=== PATIENT | female | born 1935 | race Caucasian/White ===

== ENCOUNTER 2017-10-01 09:16 | Inpatient (IN) | payer MEDICARE, OTHER ==
[2017-10-01] MEDS ORDERED: GELATIN SIZE 100 SPONGE (10:51)
[2017-10-01] MEDS ORDERED: THROMBIN 5000 UNIT VIAL (10:51)
[2017-10-01] MEDS ORDERED: GLYCOPYRROLATE 0.4 MG INJ ×2 (12:06→13:01)
[2017-10-01] MEDS ORDERED: SUCCINYLCHOLINE CHLORIDE 100 MG/5 ML SYG IV (12:06)
[2017-10-01] MEDS ORDERED: LIDOCAINE 2% (SDV) 5 ML INJ (12:06)
[2017-10-01] MEDS ORDERED: NEOSTIGMINE 3 MG/3 ML SYRINGE ×2 (12:06→13:01)
[2017-10-01] MEDS ORDERED: MEPERIDINE 100 MG INJ (12:06)
[2017-10-01] MEDS ORDERED: PROPOFOL 20 ML (12:06)
[2017-10-01] MEDS ORDERED: ROCURONIUM 50 MG INJ (12:06)
[2017-10-01] MEDS ORDERED: ONDANSETRON 4 MG INJ (13:00)
[2017-10-01] MEDS ORDERED: CEFAZOLIN 1 GM INJ (13:00)
[2017-10-01] MEDS ORDERED: METOCLOPRAMIDE 10 MG INJ (13:00)
[2017-10-01] MEDS: DEXTROSE 5%-LR 1,000 ML IV ×2 (13:00→22:21)
[2017-10-01] MEDS ORDERED: EPHEDrine SULFATE 50 MG/5 ML SYG (13:01)
[2017-10-01] MEDS: THROMBIN 5000 UNIT VIAL TOP (13:10)
[2017-10-01] MEDS: GELATIN COMPRESSED 100CM SPONGE TOP (13:10)
[2017-10-01] MEDS: POLYMYXIN/BACITRACIN 1L IRRIG (13:10)
[2017-10-01] MEDS: LIDOCAINE 1%/EPI 30 ML INJ (13:10)
[2017-10-01] MEDS: CEFAZOLIN 1 GM/50 ML (PMX) 50 ML IVPB ×2 (14:00→22:15)
[2017-10-01] MEDS ORDERED: HYDROmorphONE (0.2 MG/ML) 10ML SYG IV ×3 (15:00→15:10)
[2017-10-01] MEDS ORDERED: hydrALAzine 20 MG INJ IV (15:00)
[2017-10-01] MEDS ORDERED: FENTAnyl 50 MCG/ML VIAL IV ×3 (15:00)
[2017-10-01] MEDS ORDERED: LABETALOL HCL 20MG INJ IV (15:00)
[2017-10-01] MEDS ORDERED: OXYCODONE/ACETAMINOPHEN (5/325) TAB PO ×2 (15:00)
[2017-10-01] MEDS ORDERED: MEPERIDINE 25 MG INJ IV (15:00)
[2017-10-01] MEDS ORDERED: MIDAZOLAM 1 MG/ML 2 ML INJ IV (15:00)
[2017-10-01] MEDS ORDERED: METOCLOPRAMIDE 10 MG INJ IV (15:00)
[2017-10-01] MEDS ORDERED: DIPHENHYDRAMINE 50 MG INJ IV (15:00)
[2017-10-01] MEDS ORDERED: EPHEDrine SULFATE 50 MG/5 ML SYG IV (15:00)
[2017-10-01] MEDS ORDERED: HYDROmorphONE 2 MG/ML SYG (15:10)
[2017-10-01] MEDS: HYDROmorphONE (0.2 MG/ML) 10ML SYG IV (15:25)
[2017-10-01] MEDS: ONDANSETRON 4 MG INJ IV (15:26)
[2017-10-01] MEDS: morphine 2 MG INJ IV ×2 (16:29→20:47)
[2017-10-01] MEDS ORDERED: GLUCOSE GEL 15 GRAM TUBE PO ×2 (17:00)
[2017-10-01] MEDS ORDERED: DEXTROSE 50% 50 ML SYRINGE IV ×2 (17:00)
[2017-10-01] MEDS ORDERED: GLUCOSE GEL 15 GRAM TUBE BUCCAL (17:00)
[2017-10-01] MEDS ORDERED: GLUCAGON 1 MG INJ IM (17:00)
[2017-10-01] MEDS: INSULIN ASPART [NOVOLOG] 3 ML PEN SC ×2 (17:55→21:00)
[2017-10-01] MEDS: HYDROCODONE/APAP (10/325) TAB PO ×2 (18:04→23:05)
[2017-10-01] MEDS: FUROSEMIDE 40 MG TAB PO (18:04)
[2017-10-01] MEDS: ATORVASTATIN 40 MG TAB PO (20:57)
[2017-10-01] MEDS ORDERED: FUROSEMIDE 40 MG TAB PO (21:00)
[2017-10-01] MEDS: POTASSIUM CHLORIDE (SR) 8 MEQ CAP PO (21:02)
[2017-10-02] MEDS: ACCU-CHEK XX (02:00)
[2017-10-02] MEDS: morphine 2 MG INJ IV ×4 (04:49→19:26)
[2017-10-02 05:21] LABS: ADD MAN DIFF? NO
[2017-10-02 05:27] LABS: WHITE BLOOD COUNT 6.8 10^3/ul (4.8-10.8)
[2017-10-02 05:27] LABS: BASOPHILS % 0.6 % (0.0-2.0); EOSINOPHILS # 0.1 10^3/ul (0.0-0.5); EOSINOPHILS % 1.6 % (0.0-7.0); HEMATOCRIT 29.8 % (37.0-47.0); HEMOGLOBIN 9.8 g/dl (12.0-16.0); LYMPHOCYTES % 15.3 % (15.0-51.0); MEAN CORPUSCULAR HEMOGLOBIN 30.2 pg (29.0-33.0); MEAN CORPUSCULAR HGB CONC 32.9 g/dl (32.0-37.0); MONOCYTE # 0.8 10^3/ul (0.3-0.9); MONOCYTES % 11.7 % (0.0-11.0); NEUTROPHIL # 4.8 10^3/ul (1.6-7.5); NEUTROPHILS % 70.4 % (39.0-77.0); PLATELET COUNT 243 10^3/UL (140-415); RED BLOOD COUNT 3.24 10^6/ul (4.20-5.40); RED CELL DISTRIBUTION WIDTH 14.2 % (11.5-14.5)
[2017-10-02 06:02] LABS: ALANINE AMINOTRANSFERASE 21 IU/L (13-69); ALBUMIN 3.1 g/dl (3.3-4.9); ALBUMIN/GLOBULIN RATIO 1.24; ALKALINE PHOSPHATASE 59 IU/L (42-121); ANION GAP 13 (8-16); ASPARTATE AMINO TRANSFERASE 22 IU/L (15-46); BILIRUBIN,INDIRECT 0.2 mg/dl (0-1.1); BILIRUBIN,TOTAL 0.2 mg/dl (0.2-1.3); BLOOD UREA NITROGEN 18 mg/dl (7-20); CALCIUM 8.1 mg/dl (8.4-10.2); CARBON DIOXIDE 30 mmol/L (21-31); CHLORIDE 107 mmol/L (97-110); CREATININE 1.07 mg/dl (0.44-1.00); GLUCOSE 112 mg/dl (70-220); POTASSIUM 3.4 mmol/L (3.5-5.1); SODIUM 147 mmol/L (135-144); TOTAL PROTEIN 5.6 g/dl (6.1-8.1)
[2017-10-02] MEDS: HYDROCODONE/APAP (10/325) TAB PO ×3 (06:13→14:08)
[2017-10-02] MEDS: CEFAZOLIN 1 GM/50 ML (PMX) 50 ML IVPB ×2 (06:13→14:08)
[2017-10-02] MEDS: FUROSEMIDE 40 MG TAB PO ×2 (06:18→17:43)
[2017-10-02] MEDS: INSULIN ASPART [NOVOLOG] 3 ML PEN SC ×4 (07:50→21:00)
[2017-10-02] MEDS: ESCITALOPRAM 10 MG TAB PO (08:35)
[2017-10-02] MEDS: POTASSIUM CHLORIDE (SR) 8 MEQ CAP PO ×2 (08:36→20:53)
[2017-10-02] MEDS: metFORMIN (XR) 500 MG TAB PO (08:36)
[2017-10-02] MEDS: ISOSORBIDE MONONITRATE(SR)30 MG TAB PO ×2 (08:36→09:00)
[2017-10-02] MEDS: AMIODARONE 200 MG TAB PO (09:00)
[2017-10-02] MEDS: ONDANSETRON 4 MG INJ IV (15:33)
[2017-10-02] MEDS: DEXTROSE 5%-LR 1,000 ML IV (15:48)
[2017-10-02] MEDS: MAGNESIUM HYDROXIDE 30ML CUP PO (20:53)
[2017-10-02] MEDS: ATORVASTATIN 40 MG TAB PO (21:11)
[2017-10-03] MEDS: HYDROCODONE/APAP (10/325) TAB PO ×4 (00:07→20:55)
[2017-10-03] MEDS: clonAZEPAM 0.5 MG TAB PO (00:08)
[2017-10-03] MEDS: ACCU-CHEK XX (02:00)
[2017-10-03] MEDS: morphine 2 MG INJ IV ×2 (04:57→23:45)
[2017-10-03 05:52] LABS: ADD MAN DIFF? NO
[2017-10-03 06:00] LABS: BASOPHIL # 0.1 10^3/ul (0.0-0.1); BASOPHILS % 0.8 % (0.0-2.0); EOSINOPHILS # 0.2 10^3/ul (0.0-0.5); EOSINOPHILS % 2.1 % (0.0-7.0); HEMATOCRIT 28.5 % (37.0-47.0); HEMOGLOBIN 9.3 g/dl (12.0-16.0); LYMPHOCYTES # 1.4 10^3/ul (0.8-2.9); LYMPHOCYTES % 19.8 % (15.0-51.0); MEAN CORPUSCULAR HEMOGLOBIN 30.2 pg (29.0-33.0); MEAN CORPUSCULAR HGB CONC 32.6 g/dl (32.0-37.0); MEAN CORPUSCULAR VOLUME 92.5 fl (82.0-101.0); MEAN PLATELET VOLUME 10.3 fl (7.4-10.4); MONOCYTE # 0.8 10^3/ul (0.3-0.9); MONOCYTES % 11.3 % (0.0-11.0); NEUTROPHIL # 4.7 10^3/ul (1.6-7.5); NEUTROPHILS % 65.6 % (39.0-77.0); PLATELET COUNT 229 10^3/UL (140-415); RED BLOOD COUNT 3.08 10^6/ul (4.20-5.40); RED CELL DISTRIBUTION WIDTH 14.1 % (11.5-14.5)
[2017-10-03 06:00] LABS: WHITE BLOOD COUNT 7.2 10^3/ul (4.8-10.8)
[2017-10-03 06:25] LABS: ANION GAP 11 (8-16); BLOOD UREA NITROGEN 20 mg/dl (7-20); CALCIUM 8.2 mg/dl (8.4-10.2); CARBON DIOXIDE 29 mmol/L (21-31); CHLORIDE 104 mmol/L (97-110); CREATININE 1.55 mg/dl (0.44-1.00); GLUCOSE 98 mg/dl (70-220); POTASSIUM 3.6 mmol/L (3.5-5.1); SODIUM 140 mmol/L (135-144)
[2017-10-03] MEDS: FUROSEMIDE 40 MG TAB PO ×2 (06:41→17:53)
[2017-10-03] MEDS: MAGNESIUM HYDROXIDE 30ML CUP PO (06:42)
[2017-10-03] MEDS: POTASSIUM CHLORIDE (SR) 8 MEQ CAP PO ×2 (08:51→20:54)
[2017-10-03] MEDS: ESCITALOPRAM 10 MG TAB PO (08:51)
[2017-10-03] MEDS: metFORMIN (XR) 500 MG TAB PO (08:51)
[2017-10-03] MEDS: INSULIN ASPART [NOVOLOG] 3 ML PEN SC ×4 (08:54→21:00)
[2017-10-03] MEDS: AMIODARONE 200 MG TAB PO (09:00)
[2017-10-03] MEDS: ISOSORBIDE MONONITRATE(SR)30 MG TAB PO (09:00)
[2017-10-03] MEDS: DEXTROSE 5%-0.45% NACL 1,000 ML IV (12:51)
[2017-10-03] MEDS: AL HYDROX/MG HYDROX/SIMETH 30 ML CUP PO (16:55)
[2017-10-03] MEDS: BETHANECHOL 25 MG TAB PO ×2 (16:55→20:54)
[2017-10-03] MEDS: POLYETHYLENE GLYCOL 17 GM PACKET PO (17:51)
[2017-10-03] MEDS: ATORVASTATIN 40 MG TAB PO (20:54)
[2017-10-03] MEDS ORDERED: BETHANECHOL 25 MG TAB PO (21:00)
[2017-10-04] MEDS: ACCU-CHEK XX (02:00)
[2017-10-04] MEDS: morphine 2 MG INJ IV ×2 (05:27→17:02)
[2017-10-04 05:32] LABS: ADD MAN DIFF? NO
[2017-10-04] MEDS: FUROSEMIDE 40 MG TAB PO ×2 (05:32→18:42)
[2017-10-04 05:33] LABS: WHITE BLOOD COUNT 6.1 10^3/ul (4.8-10.8)
[2017-10-04 05:33] LABS: BASOPHILS % 0.7 % (0.0-2.0); EOSINOPHILS # 0.3 10^3/ul (0.0-0.5); EOSINOPHILS % 4.9 % (0.0-7.0); HEMATOCRIT 29.5 % (37.0-47.0); HEMOGLOBIN 9.5 g/dl (12.0-16.0); LYMPHOCYTES # 1.7 10^3/ul (0.8-2.9); LYMPHOCYTES % 28.3 % (15.0-51.0); MEAN CORPUSCULAR HEMOGLOBIN 29.8 pg (29.0-33.0); MEAN CORPUSCULAR HGB CONC 32.2 g/dl (32.0-37.0); MEAN CORPUSCULAR VOLUME 92.5 fl (82.0-101.0); MEAN PLATELET VOLUME 9.8 fl (7.4-10.4); MONOCYTE # 0.7 10^3/ul (0.3-0.9); MONOCYTES % 11.3 % (0.0-11.0); NEUTROPHIL # 3.3 10^3/ul (1.6-7.5); NEUTROPHILS % 54.5 % (39.0-77.0); PLATELET COUNT 224 10^3/UL (140-415); RED BLOOD COUNT 3.19 10^6/ul (4.20-5.40); RED CELL DISTRIBUTION WIDTH 14.1 % (11.5-14.5)
[2017-10-04 06:00] LABS: ANION GAP 9 (8-16); BLOOD UREA NITROGEN 23 mg/dl (7-20); CALCIUM 8.4 mg/dl (8.4-10.2); CARBON DIOXIDE 33 mmol/L (21-31); CHLORIDE 103 mmol/L (97-110); CREATININE 1.39 mg/dl (0.44-1.00); GLUCOSE 113 mg/dl (70-220); POTASSIUM 5.1 mmol/L (3.5-5.1); SODIUM 140 mmol/L (135-144)
[2017-10-04] MEDS: DEXTROSE 5%-0.45% NACL 1,000 ML IV ×2 (06:03→22:14)
[2017-10-04] MEDS: HYDROCODONE/APAP (10/325) TAB PO ×2 (07:20→20:07)
[2017-10-04] MEDS: INSULIN ASPART [NOVOLOG] 3 ML PEN SC ×4 (08:45→21:00)
[2017-10-04] MEDS: AMIODARONE 200 MG TAB PO (09:50)
[2017-10-04] MEDS: metFORMIN (XR) 500 MG TAB PO (09:50)
[2017-10-04] MEDS: ESCITALOPRAM 10 MG TAB PO (09:50)
[2017-10-04] MEDS: ISOSORBIDE MONONITRATE(SR)30 MG TAB PO (09:51)
[2017-10-04] MEDS: BETHANECHOL 25 MG TAB PO ×3 (09:51→20:07)
[2017-10-04] MEDS: MAGNESIUM HYDROXIDE 30ML CUP PO (09:51)
[2017-10-04] MEDS: POLYETHYLENE GLYCOL 17 GM PACKET PO (09:51)
[2017-10-04] MEDS: POTASSIUM CHLORIDE (SR) 8 MEQ CAP PO ×2 (09:51→20:06)
[2017-10-04] MEDS: ATORVASTATIN 40 MG TAB PO (20:06)
[2017-10-05] MEDS: morphine 2 MG INJ IV ×2 (01:37→10:08)
[2017-10-05] MEDS: ACCU-CHEK XX (02:00)
[2017-10-05] MEDS: FUROSEMIDE 40 MG TAB PO (06:00)
[2017-10-05] MEDS: HYDROCODONE/APAP (10/325) TAB PO ×2 (06:29→11:50)
[2017-10-05] MEDS: INSULIN ASPART [NOVOLOG] 3 ML PEN SC ×2 (07:50→11:40)
[2017-10-05] MEDS: BETHANECHOL 25 MG TAB PO ×2 (08:55→13:31)
[2017-10-05] MEDS: ESCITALOPRAM 10 MG TAB PO (08:55)
[2017-10-05] MEDS: POTASSIUM CHLORIDE (SR) 8 MEQ CAP PO (08:55)
[2017-10-05] MEDS: metFORMIN (XR) 500 MG TAB PO (08:55)
[2017-10-05] MEDS: MAGNESIUM HYDROXIDE 30ML CUP PO (08:56)
[2017-10-05] MEDS: POLYETHYLENE GLYCOL 17 GM PACKET PO (08:56)
[2017-10-05] MEDS: AMIODARONE 200 MG TAB PO (09:00)
[2017-10-05] MEDS: ISOSORBIDE MONONITRATE(SR)30 MG TAB PO (09:00)
== END 2017-10-05 14:20 | disposition home or self-care (01) | DRG 519 ==
LOC: REC 09:16 → MS1 15:30
PROVIDERS: Neurological Surgery
PROC: 00NY0ZZ Release Lumbar Spinal Cord, Open Approach (ICD-10-PCS; principal; 2017-10-01 12:00)
PROC: 00BY0ZX Excision of Lumbar Spinal Cord, Open Approach, Diagnostic (ICD-10-PCS; 2017-10-01 12:00)
DX: M71.38 Other bursal cyst, other site (principal); K56.7 Ileus, unspecified; N17.9 Acute kidney failure, unspecified; E03.9 Hypothyroidism, unspecified; I25.10 Atherosclerotic heart disease of native coronary artery without angina pectoris; E11.9 Type 2 diabetes mellitus without complications; I50.9 Heart failure, unspecified; I11.0 Hypertensive heart disease with heart failure; F41.9 Anxiety disorder, unspecified; F32.9 Major depressive disorder, single episode, unspecified; K29.80 Duodenitis without bleeding; E78.5 Hyperlipidemia, unspecified
CPT/HCPCS: 72100; 80048; 80053; 82962; 85025; 86850; 86900; 86901; 88304; 97116; 97163; 97530